=== PATIENT | female | born 1985 | race Caucasian/White ===

== ENCOUNTER 2018-04-06 08:58 | Emergency (ER) | payer MEDICAID ==
[2018-04-06 09:04] VITALS: BP 130/51
--- NOTE | 2018-04-06 09:08 | EDPHY ---
H & P Stated Complaint: "bugs all over" Time Seen by Provider: 04/06/18 09:08 - Personal History LMP (Females 10-55): 8-14 Days Ago Current Tetanus/Diphtheria Vaccine: Yes Current Tetanus Diphtheria and Acellular Pertussis (TDAP): Yes - Medical/Surgical History Hx Asthma: No Hx Chronic Respiratory Disease: No Hx Diabetes: No Hx Cardiac Disease: No Hx Renal Disease: No Hx Cirrhosis: No Hx Alcoholism: No Hx HIV/AIDS: No Hx Splenectomy or Spleen Trauma: No Other PMH: denies - Social History Smoking Status: Current some day smoker Constitutional: Initial Vital Signs Temperature (C) 36.7 C 04/06/18 09:02 Heart Rate 72 04/06/18 09:02 Respiratory Rate 16 04/06/18 09:02 Blood Pressure 130/51 H 04/06/18 09:02 O2 Sat (%) 97 04/06/18 09:02 O2 Delivery Mode Room Air Allergies/Adverse Reactions: Opioids - Morphine Analogues Allergy (Verified 04/06/18 09:01) Home Medications: Medication Instructions Recorded Permethrin 5% [Elimite 5%] 60 gm TP DAILY #1 cream 04/06/18 Medical Decision Making ED Course/Re-evaluation: CHIEF COMPLAINT: I have bugs all over HISTORY OF PRESENT ILLNESS: 33-year-old homeless patient has been staying in shelters. She noticed just yesterday that she has bugs and some bites and some itching. It has progressed overnight and today and she came in here for help and evaluation. She denies any other problems. REVIEW OF SYSTEMS: A comprehensive 10 system review of systems is otherwise negative aside from elements mentioned in the history of present illness and medical decision making. PHYSICAL EXAM: HR, BP, O2 Sat, RR. Temp noted General Appearance: Alert, well hydrated, appropriate, and non-toxic appearing. Head: Atraumatic without scalp tenderness or obvious injury Eyes: Pupils equal, round, reactive to light and accommodation, EOMI, no trauma , no injection. Ears: Clear bilaterally, no perforation, normal landmarks Nose: Atraumatic, no rhinorrhea, clear. Throat: There is no erythema or exudates, no lesions, normal tonsils, mucus membranes moist. Neck: Supple, 2+ carotid upstroke, nontender, no lymphadenopathy. Respiratory: No retractions, no distress, no wheezes, and no accessory muscle use. Lungs are clear to auscultation bilaterally. Cardiovascular: Regular rate and rhythm, no murmurs, rubs, or gallops. Bilateral carotid, radial, dorsalis pedis, and posterior tibial pulses intact. Good capillary refill all extremities. Gastrointestinal: Abdomen is soft, nontender, non-distended, no masses, no rebound, no guarding, no peritoneal signs. Musculoskeletal: Normal active ROM of all extremities, atraumatic. Neurological: Alert, appropriate, and interactive. The patient has normal DTRs and non-focal cranial nerves, motor, sensory, and cerebellar exam. Skin: A few scabies bites no cellulitis no lymphangitis. No rashes, good turgor, no nodules on palpation. Past medical history: Denies Past surgical history: Denies Family history: Noncontributory Social history: Homeless, denies drug abuse, not employed, not . DIFFERENTIAL DIAGNOSIS: Includes but is not limited to: Scabies, bedbugs, mosquito bites, spider bites, skin infection MEDICAL DECISION MAKING: This patient most likely has scabies. There is no evidence of bedbugs. I will prescribed Elimite 5% to apply as directed the patient will follow up as needed. I have also given the patient instructions regarding her clothes and bed linens Departure - Departure Disposition: Home, Routine, Self-Care Clinical Impression: Scabies infestation Condition: Good Instructions: Scabies (ED) Additional Instructions: Return if worse Referrals: NONE *PRIMARY CARE P,. [Primary Care Provider] - As per Instructions Prescriptions: Permethrin 5% [Elimite 5%] 60 gm TP DAILY #1 cream
== END 2018-04-06 09:26 | disposition home or self-care (01) ==
DX: B86 Scabies (principal); F17.200 Nicotine dependence, unspecified, uncomplicated; Z59.0 Homelessness

== ENCOUNTER 2018-05-03 12:25 | Emergency (ER) | payer MEDICAID ==
[2018-05-03 12:37] VITALS: BP 106/60
[2018-05-03] MEDS ORDERED: PERMETHRIN 5% 60 GM CREAM TP ONE (13:20)
--- NOTE | 2018-05-03 13:24 | EDPHY ---
H & P Stated Complaint: Scabies Time Seen by Provider: 05/03/18 13:08 - Personal History LMP (Females 10-55): 8-14 Days Ago Current Tetanus Diphtheria and Acellular Pertussis (TDAP): Yes Tetanus Vaccine Date: 2015 - Medical/Surgical History Hx Asthma: No Hx Chronic Respiratory Disease: No Hx Diabetes: No Hx Cardiac Disease: No Hx Renal Disease: No Hx Cirrhosis: No Hx Alcoholism: No Hx HIV/AIDS: No Hx Splenectomy or Spleen Trauma: No Other PMH: scabies - Social History Smoking Status: Current some day smoker Constitutional: Initial Vital Signs Temperature (C) 36.6 C 05/03/18 12:33 Heart Rate 71 05/03/18 12:33 Respiratory Rate 18 05/03/18 12:33 Blood Pressure 106/60 05/03/18 12:33 O2 Sat (%) 97 05/03/18 12:33 O2 Delivery Mode Room Air Allergies/Adverse Reactions: Opioids - Morphine Analogues Allergy (Verified 04/06/18 09:01) Home Medications: Medication Instructions Recorded Permethrin 5% [Elimite 5%] 60 gm TP DAILY #1 cream 04/06/18 Medical Decision Making ED Course/Re-evaluation: CHIEF COMPLAINT: Scabies, wants meds HISTORY OF PRESENT ILLNESS: The patient is a 33 y/o female with known scabies who returns complaining of scabies pruritus. She was seen recently for the same complaint and says "the 5% I got didn't work" referring to permethrin cream. However, she says she does not have the financial ability to wash her clothes and other belongings while undergoing scabies treatment. She is requesting more medication and helping with social media developer. No new complaints. No fever, cough , respiratory symptoms, vomiting, abdominal pain. REVIEW OF SYSTEMS: A comprehensive 10 system review of systems is otherwise negative aside from elements mentioned in the history of present illness and medical decision making. PHYSICAL EXAM: HR, BP, O2 Sat, RR. Temp noted General Appearance: Alert, well hydrated, appropriate, and non-toxic appearing. Head: Atraumatic without scalp tenderness or obvious injury Eyes: Pupils equal, round, reactive to light and accommodation, EOMI, no trauma , no injection. Nose: Atraumatic, no rhinorrhea, clear. Throat: Mucus membranes moist. Neck: Supple. Respiratory: No retractions, no distress, no wheezes, and no accessory muscle use. Lungs are clear to auscultation bilaterally. Cardiovascular: Regular rate and rhythm, no murmurs, rubs, or gallops. Good capillary refill all extremities. Gastrointestinal: Abdomen is soft, non-tender, non-distended, no masses, no rebound, no guarding, no peritoneal signs. Musculoskeletal: Normal active ROM of all extremities, atraumatic. Neurological: Alert, appropriate, and interactive. Nonfocal. Skin:Good turgor, no nodules on palpation. Diffuse scabies rash and areas of excoriation. PAST MEDICAL HISTORY: Scabies PAST SURGICAL HISTORY: Noncontributory SOCIAL HISTORY: Transient. Not employed. DIFFERENTIAL DIAGNOSIS: The differential diagnosis included but was not limited to scabies infestation, cellulitis, urticarial reaction, and other infectious causes for skin rash. MEDICAL DECISION MAKING: This is a transient 33 y/o female who presents with an ongoing scabies rash. She was treated with permethrin cream previously, but was unable to disinfect her clothing and belongings while using this medication and now complains of significant pruritus. Plan for permethrin script and case management involvement to discuss social resources to clean her clothing and belongings to treat infestation. She is comfortable with this plan. - Data Points Medications Given: Discontinued Medications Permethrin (Elimite 5%) 1 deb TP ONCE ONE Stop: 05/03/18 13:21 Last Admin: 05/03/18 14:18 Dose: 1 tube Departure - Departure Disposition: Home, Routine, Self-Care Clinical Impression: Scabies Condition: Good Instructions: Permethrin (On the skin), Scabies (ED) Additional Instructions: 1. Use permethrin cream as directed for scabies. 2. You must wash all your clothing, bedding, furniture, and any other material you are in contact on a long cycle in very HOT water or dispose of it or else you will continue to be reinfected from insects in your clothing. 3. Follow up with your primary care provider for unimproved symptoms. Referrals: [facility],. [Clinic] - As per Instructions Report Scribed for: Geovanni Lopez Report Scribed by: Aida Hudson Date of Report: 05/03/18 Time of Report: 15:33
--- NOTE | 2018-05-03 16:53 | ASMTCMCOM ---
CM Note CM Note Notes: Pt presented to the ED for scabies pruritus. Pt was recently seen in the ED 04/06/18 for same reason. Pt had been provided 5% permethrin lotion during that visit but pt reports "it didn't work." Pt states she has not been able to afford to do laundry. Pt has been staying at the [facility] and they do not have laundry available there or provide funds for laundry. This CM called [facility] ([phone]) and spoke w/pt's Customer Support Representative, Madelaine. Madelaine states that pt has been offered work through [employer] "but she chooses not to work." Pt strongly encouraged to accept any type of work offered to her so she can afford to do her laundry. Pt aware that she will continue to have scabies until she can find a way to launder her clothes or to get clean clothes. Pt is aware of [facility] and plans to go there on . Pt was again provided 5% permethrin lotion today. *If pt presents to the ED again for same issue and it is a weekday, consider assisting pt with getting an appt at [facility] and if she needs another Rxn for permethrin then provide her the Rxn to be filled at any pharmacy of her choice through her Medicaid benefits. This CM also [facility] and [facility] card. CM available for further assistance if needed. Date Signed: 05/03/2018 04:53 PM Electronically Signed By:Merari Casper RN
== END 2018-05-03 14:21 | disposition home or self-care (01) ==
DX: B86 Scabies (principal)